=== PATIENT | male | born 1965 | race Caucasian/White ===

== ENCOUNTER → 2019-01-02 | Day surgery (SDC) | payer BC ==
[~2019-01-02] MED LIST: ASPIR 8181 MG PO; ATORVASTATIN CA20 MG PO; FENTANYL CITRATE/PF 100MCG/2 ML INJ ONE; GLUCAGON FOR INJ 1 MG VIAL ONE; HYOSCYAMINE 0.125 MG TAB PO ONE; HYOSCYAMINE SULFATE 0.5 MG/ML INJ ONE; IBUPROFEN200 MG PO; LIDOCAINE HCL 2% LOCAL INJ 5 ML SDV VIAL INJ ONE; MIDAZOLAM HCL 2 MG/2 ML VIAL ONE; PROPOFOL IV EMULSION 10 MG/ML 50 ML VIAL ONE
--- OUTSIDE RECORDS SUMMARY | 2019-01-02 11:05 | XMS REPORT | Clinical Summary ---
Author Author [facility] Organization [facility] Address Unknown Phone Unavailable Care Team Providers Care Medical Records Specialist Name Role Phone Asked, No Pcp PCP Unavailable Allergies Comments Active Allergy Reactions Severity Noted Date Bee Venom Protein (Honey Hives 09/21/2016 Bee) Penicillins Hives 09/21/2016 Medications End Date Status Medication Sig Dispensed Refills Start Date Active ibuprofen (ADVIL,MOTRIN) Take 200 mg 0 200 MG tablet by mouth every 6 (six) hours as needed for mild pain (Previous back surgery). Active traMADol (ULTRAM) 50 mg Take 50 mg by 0 tablet mouth every 6 (six) hours as needed for moderate pain. Active Problems Problem Noted Date Kidney donor Social History Date Tobacco Use Types Packs/Day Years Used Never Assessed Sex Assigned at Date Recorded Not on file Industry Job Start Date Occupation Not on file Not on file Not on file Travel End Travel History Travel Start No recent travel history available. Last Filed Vital Signs Not on file Plan of Treatment Health Maintenance Due Date Last Done Comments COLONOSCOPY SCREENING 2017 SHINGLES VACCINES (#1) 2017 INFLUENZA VACCINE 02/19/2019 Results Not on fileafter 01/01/2018 Insurance Type Payer Benefit Subscriber ID Effective Phone Address Plan / Dates Group Transplant AETNA AETNA HMO xxxxxxxxxx 2014- POS Present TRANSPLANT Advance Directives Patient has advance care planning documents on file. For more information, eliana douglas contact: Tayo Murcia [address] [place] [address]
--- NOTE | 2019-01-02 17:35 | Diagnostic Imaging Report ---
RADIOGRAPH(S) OF THE ABDOMEN AND PELVIS, 2 view(s) HISTORY: Status post colonoscopy, pain COMPARISON: None available. FINDINGS: Mild gaseous distention of numerous loops of small bowel and colon. No specific evidence of obstruction or ileus. No definite urinary tract calcification. A 1.5 cm linear metallic density projects at the left hemipelvis. The bones are partially obscured by stool and overlying bowel gas. IMPRESSION: 1. Indeterminate 1.5 cm metallic density projects to the left hemipelvis. 2. No evidence of free air. Signed by: Dr. Reymundo Hernandez D.O., M.M.M. on 01/02/2019 5:32 PM
[2019-01-02 17:49] VITALS: BP 145/91
--- NOTE | 2019-01-02 22:19 | Operative Report ---
DATE OF PROCEDURE: 01/02/2019 SURGEON: Zeferino Segal MD PROCEDURE: Colonoscopy and polypectomy note. INDICATION FOR COLONOSCOPY: Colorectal cancer screening. MEDICATION: The patient was done under MAC, please see anesthesiologist's note. PROCEDURE IN DETAIL: With the patient in left lateral decubitus position, a flexible fiberoptic Olympus colonoscope was inserted into the rectum with ease and advanced all the way to the cecum. It was then withdrawn slowly mucosa overlying the cecum, ascending, and transverse as well as the descending colon, appeared to be within normal limits. Diverticular disease was noted to involve the sigmoid colon. One polyp was snared from the sigmoid colon and polypectomy site was hemoclipped. The rectum appeared to be within normal limits. The scope was then retroflexed into the distal rectum and small internal hemorrhoids were noted, none of which was actively bleeding. The scope was then straightened out and it was subsequently withdrawn. The patient tolerated procedure well. IMPRESSION: 1. Diverticulosis. 2. Sigmoid colon polyp snared and site hemoclipped. 3. Internal hemorrhoids, none actively bleeding. PLAN: Follow up histology. Initiate high-fiber, low-fat diet. Initiate high-fiber supplement. The patient might benefit from a followup colonoscopy in 5 years. Zeferino Segal MD [facility] [place] /[id number] cc: Daren Ravi MD
== END | disposition home or self-care (01) ==
LOC: OR 10:56
PROVIDERS: ATTEND Internal Medicine Gastroenterology
DX: K59.00 Constipation, unspecified (principal); K63.5 Polyp of colon; K57.30 Diverticulosis of large intestine without perforation or abscess without bleeding; K64.8 Other hemorrhoids; R03.0 Elevated blood-pressure reading, without diagnosis of hypertension; Z88.0 Allergy status to penicillin; Z01.810 Encounter for preprocedural cardiovascular examination; Z79.82 Long term (current) use of aspirin
CPT/HCPCS: 45385; 74018; 93005; J1610; J1980; J2001; J2250; J2704

== ENCOUNTER 2021-02-23 15:25 | Emergency (ER) | payer BC ==
[~2021-02-23] VITALS: Ht 162.6 cm; Wt 63.5 kg
[~2021-02-23 15:25] MED LIST changes: -FENTANYL CITRATE/PF 100MCG/2 ML INJ ONE; -GLUCAGON FOR INJ 1 MG VIAL ONE; -HYOSCYAMINE 0.125 MG TAB PO ONE; -HYOSCYAMINE SULFATE 0.5 MG/ML INJ ONE; -LIDOCAINE HCL 2% LOCAL INJ 5 ML SDV VIAL INJ ONE; -MIDAZOLAM HCL 2 MG/2 ML VIAL ONE; -PROPOFOL IV EMULSION 10 MG/ML 50 ML VIAL ONE
[2021-02-23] MEDS ORDERED: ACETAMINOPHEN 325 MG TAB PO ONE (16:00)
[2021-02-23] MEDS ORDERED: CASIRIVIMAB/IMDEVIMAB 10 ML VIAL IV ONE (16:00)
[2021-02-23] MEDS ORDERED: CASIRIVIMAB/IMDEVIMAB 600 ML in SODIUM CHLORIDE 0.9% 100 ML IV ONE (16:30)
[2021-02-23 18:24] VITALS: BP 142/80
== END 2021-02-23 17:24 | disposition home or self-care (01) ==
LOC: ER 16:20
DX: U07.1 COVID-19 (principal); R53.81 Other malaise; G89.29 Other chronic pain; M54.9 Dorsalgia, unspecified; E78.5 Hyperlipidemia, unspecified; Z79.82 Long term (current) use of aspirin; Z79.899 Other long term (current) drug therapy; Z90.5 Acquired absence of kidney; Z88.0 Allergy status to penicillin; Z91.030 Bee allergy status
CPT/HCPCS: 99283; J7050

== ENCOUNTER → 2025-03-30 | Outpatient (REF) | payer BC | LOC: MRI 08:47 | PROVIDERS: ATTEND Internal Medicine | DX: R42 Dizziness and giddiness (principal); G45.9 Transient cerebral ischemic attack, unspecified | CPT/HCPCS: 70551; 93880 ==